=== PATIENT | female | born 1975 | race African-American/Black ===

== ENCOUNTER 2020-11-24 21:23 | Emergency (ER) | payer OTHER ==
[2020-11-24 21:49] VITALS: BP 106/71; PULSE 90; TEMP 100.6; BMI 25.8
[2020-11-24] MEDS ORDERED: ONDANSETRON 4 MG/2 ML VIAL IVPUSH ONE (21:52)
[2020-11-24] MEDS ORDERED: SODIUM CHLORIDE 1,000 ML IV STA (21:52)
[2020-11-24] MEDS ORDERED: ACETAMINOPHEN 1000 MG/100 ML VIAL (NON FORMULARY) IVPB ONE (22:00)
[2020-11-24] MEDS ORDERED: FAMOTIDINE 20 MG/50 ML IVPB 20 MG/50 ML MG IVPB ONE ×2 (22:00→22:17)
[2020-11-24 22:12] LABS: EPITHELIAL CELLS FEW /hpf
[2020-11-24 22:14] LABS: HCG,QUALITATIVE URINE Negative
[2020-11-24] MEDS ORDERED: ACETAMINOPHEN INJECTION 100 ML IVPB ONE (22:17)
[2020-11-24] MEDS ORDERED: ONDANSETRON 4 MG/2 ML VIAL ONE (22:17)
[2020-11-24 22:46] LABS: BASO % 0.6 % (0-2.0); EOS % 0.1 % (0-4.5); HEMATOCRIT 34.2 % (32.4-45.2); HEMOGLOBIN 11.2 GM/dl (10.7-15.3); LYMPH % 18.4 % (8-40); MCH 24.9 pg (25.7-33.7); MCHC 32.7 g/dl (32.0-36.0); MEAN CELL VOLUME 76.4 fl (80-96); MEAN PLT VOLUME 8.9 fl (7.5-11.1); MONO % 7.5 % (3.8-10.2); NEUT % 73.4 % (42.8-82.8); PLATELET COUNT 248 10^3/uL (134-434); RBC 4.48 M/mm3 (3.60-5.2); RDW 17.7 % (11.6-15.6); WHITE BLOOD COUNT 3.9 K/mm3 (4.0-10.8)
[2020-11-24 22:56] LABS: BILIRUBIN,TOTAL 0.6 mg/dl (0.2-1); CALCIUM 8.3 mg/dl (8.5-10); CREATININE 1.3 mg/dl (0.55-1.3); TOT PROT 8.2 g/dl (6.4-8.2)
[2020-11-25] MEDS ORDERED: AZITHROMYCIN 250 MG TABLET PO ONE (00:04)
[2020-11-25] MEDS ORDERED: AZITHROMYCIN 250 MG TABLET ONE (00:06)
[2020-11-26 14:08] LABS: SARS-CoV-2 NAA Detected (Not Detected)
== END 2020-11-25 00:09 | disposition home or self-care (01) ==
LOC: FER 21:23
PROC: 3E033GC Introduction of Other Therapeutic Substance into Peripheral Vein, Percutaneous Approach (ICD-10-PCS; principal; 2020-11-24)
DX: J18.9 Pneumonia, unspecified organism (principal); R11.10 Vomiting, unspecified
CPT/HCPCS: 36415; 71046-TC-FY; 80053; 81003; 81015; 84703; 85025; 87086; 99284-25; C9803; J0131; U0003; U0005

== ENCOUNTER 2022-04-04 07:53 | Observation (INO) | payer BC, OTHER ==
[2022-04-04 08:11] VITALS: BMI 26.1
[2022-04-04] MEDS ORDERED: SULFAMETHOXAZOLE/TRIMETHOPRIM 800MG/160MG D.S. TABLET PO ONE (09:48)
[2022-04-04] MEDS ORDERED: LIDO 2%/EPI 1:200000 PRESRVFRE (20 ML SDVIAL) INF ONE (09:59)
[2022-04-04] MEDS ORDERED: LIDOCAINE HCL 1%, 10 MG/ML (20ML VIAL) ONE (10:07)
[2022-04-04] MEDS ORDERED: SULFAMETHOXAZOLE/TRIMETHOPRIM 800MG/160MG D.S. TABLET ONE (10:09)
[2022-04-04] MEDS ORDERED: CLINDAMYCIN 600MG PREMIX IVPB 600 MG/50 ML BAG IVPB ONE ×3 (10:46→11:40)
[2022-04-04] MEDS ORDERED: VANCOMYCIN HCL 1,500 MG in DEXTROSE 5%-WATER - 500 ML IVPB ONE (10:47)
[2022-04-04 11:58] LABS: INR 1.11 (0.83-1.09); PROTHROMBIN TIME (PATIENT) 12.8 SEC (9.7-13.0)
[2022-04-04 12:00] LABS: ACTIVATED PTT 28.2 SECONDS (25.2-36.5)
[2022-04-04 12:02] LABS: HEMATOCRIT 33.9 % (32.4-45.2); HEMOGLOBIN 11.5 G/dL (10.7-15.3); MCH 25.6 pg (25.7-33.7); MEAN CELL VOLUME 75.4 fl (80-96); MEAN PLT VOLUME 9.9 fl (7.5-11.1); PLATELET COUNT 377.5 10^3/uL (134-434); WHITE BLOOD COUNT 8.7 10^3/uL (4.0-10.8)
[2022-04-04 12:07] LABS: ALBUMIN 4.1 g/dl (3.4-5.0); BILIRUBIN,TOTAL 0.7 mg/dl (0.2-1); CALCIUM 8.7 mg/dl (8.5-10); TOT PROT 7.9 g/dl (6.4-8.2)
[2022-04-04 13:00] LABS: PLATELET ESTIMATE ADEQUATE
[2022-04-04 13:05] LABS: ERYTHROCYTE SEDIMENTATION RATE 17 mm/hr (0-20)
[2022-04-04] MEDS: PIPERACILLIN/TAZOB 3.375 GM 3.375 GM in DEXTROSE 5%-WATER - 50 ML IVPB SCH (18:27)
[2022-04-04 18:47] LABS: EPITHELIAL CELLS FEW /hpf
[2022-04-05] MEDS: PIPERACILLIN/TAZOB 3.375 GM 3.375 GM in DEXTROSE 5%-WATER - 50 ML IVPB SCH ×3 (02:20→17:38)
[2022-04-05] MEDS ORDERED: MIDAZOLAM HCL 2 MG/2 ML SINGLE DOSE VIAL ONE (07:40)
[2022-04-05] MEDS ORDERED: SUCCINYLCHOLINE CHLORIDE 200 MG/10 ML SYRINGE ONE (07:40)
[2022-04-05] MEDS ORDERED: PROPOFOL 40 ML ONE (07:40)
[2022-04-05] MEDS ORDERED: LIDOCAINE HCL 2% JELLY 10 ML CARTRIDGE ONE (07:42)
[2022-04-05] MEDS ORDERED: LIDOCAINE HCL/PF 2% SDV 5ML VIAL ONE (07:59)
[2022-04-05] MEDS ORDERED: oxyCODONE HCL 5 MG TABLET PO PRN ×3 (08:53→08:54)
[2022-04-05] MEDS ORDERED: PROMETHAZINE HCL 25 MG/1 ML VIAL IVPUSH PRN (08:54)
[2022-04-05] MEDS ORDERED: ONDANSETRON 4 MG/2 ML VIAL IVPUSH PRN (08:54)
[2022-04-06 02:00] VITALS: RESP 18
[2022-04-06] MEDS: PIPERACILLIN/TAZOB 3.375 GM 3.375 GM in DEXTROSE 5%-WATER - 50 ML IVPB SCH ×2 (02:24→11:12)
[2022-04-06 06:53] VITALS: TEMP 98.1
[2022-04-06 08:34] LABS: ALBUMIN 3.6 g/dl (3.4-5.0); BILIRUBIN,TOTAL 0.7 mg/dl (0.2-1); CALCIUM 8.9 mg/dl (8.5-10); CREATININE 1.2 mg/dl (0.55-1.3); TOT PROT 7.2 g/dl (6.4-8.2)
[2022-04-06 10:06] LABS: BASO % 0.1 % (0-2.0); EOS % 0.1 % (0-4.5); HEMATOCRIT 31.2 % (32.4-45.2); HEMOGLOBIN 9.9 GM/dL (10.7-15.3); LYMPH % 9.5 % (8-40); MCHC 31.7 g/dl (32.0-36.0); MEAN CELL VOLUME 75.6 fl (80-96); MEAN PLT VOLUME 9.1 fl (7.5-11.1); NEUT % 86.3 % (42.8-82.8); PLATELET COUNT 361 10^3/uL (134-434); RBC 4.13 M/mm3 (3.60-5.2); RDW 17.1 % (11.6-15.6); WHITE BLOOD COUNT 11.4 K/mm3 (4.0-10.0)
[2022-04-06 13:32] VITALS: BP 111/74; PULSE 76
== END 2022-04-06 12:15 | disposition home or self-care (01) ==
LOC: FER 07:53 → INTOOBSV 10:50 → FM/S 10:50
PROC: 0H9T0ZZ Drainage of Right Breast, Open Approach (ICD-10-PCS; principal; 2022-04-04)
PROC: 3E03329 Introduction of Other Anti-infective into Peripheral Vein, Percutaneous Approach (ICD-10-PCS; 2022-04-04)
DX: N61.1 Abscess of the breast and nipple (principal); L03.90 Cellulitis, unspecified; J45.909 Unspecified asthma, uncomplicated; W22.8XXA Striking against or struck by other objects, initial encounter; Y93.89 Activity, other specified; Y92.89 Other specified places as the place of occurrence of the external cause; Y99.0 Civilian activity done for income or pay
CPT/HCPCS: 0241U-QW; 10060; 36415; 76642-TC-RT; 80053; 81003; 81015; 84703; 85025; 85027; 85610; 85651; 85730; 86140; 86850; 86900; 86901; 87040; 87070; 87075; 87086; 87186; 87205; 88304-TC; 93005; 94760; 96361; 96365; 96368; 99285-25; G0378